=== PATIENT | male | born 1985 | race Caucasian/White ===

== ENCOUNTER 2017-03-03 17:59 | Emergency (ER) | payer SELFPAY ==
[~2017-03-03 17:59] MED LIST: ACET325T33 PO; ALBU8.5H3 INH; OSLT75C PO; PRED20TA PO
== END 2017-03-03 21:35 | disposition left against medical advice (07) ==
LOC: E/R 17:59
DX: Z53.21 Procedure and treatment not carried out due to patient leaving prior to being seen by health care provider (principal)